=== PATIENT | male | born 1955 | race Caucasian/White ===

== ENCOUNTER 2023-02-19 09:28 | Day surgery (SDC) | payer MEDICARE, OTHER ==
[2023-02-19] VITALS (11 sets, daily range): BP systolic 133–176; BP diastolic 66–91; PULSE 60–85
[~2023-02-19] VITALS: Ht 172.7 cm; Wt 84.5 kg
[~2023-02-19 09:28] MED LIST: AMIO200T68 PO; ASPIRIN 81 MG CHEWABLE TABLET PO ONE; DIAZEPAM 5 MG TABLET PO ONE; DiphenhydrAMINE HCL 50 MG CAPSULE PO ONE; LEVO200 PO; METO25 PO; RIVA2.5T3 PO; SILD20TA PO; SODIUM CHLORIDE 0.9% 1,000 ML IV ONE; SODIUM CHLORIDE 0.9% 1,000 ML IV SCH; SODIUM CHLORIDE 0.9% 1,000 ML ONE; TAMS0.4C94 PO; ZOLP-162 PO
[2023-02-19] MEDS ORDERED: DIAZEPAM 5 MG TABLET ONE (09:48)
[2023-02-19] MEDS ORDERED: ASPIRIN 81 MG CHEWABLE TABLET ONE (09:48)
[2023-02-19] MEDS ORDERED: DiphenhydrAMINE HCL 50 MG CAPSULE ONE (09:48)
[2023-02-19 11:12] LABS: GLUCOMETER DEV NAME(LOC) SDS.; GLUCOSE,POINT OF CARE 134 MG/DL (70-110)
[2023-02-19] MEDS ORDERED: LIDOCAINE/PF 1% 30 ML VIAL ONE (11:26)
[2023-02-19] MEDS ORDERED: HEPARIN SODIUM 1000 UNITS/NS 1,000 ML ONE (11:26)
[2023-02-19] MEDS ORDERED: IOHEXOL 300 MG/ML 100 ML VIAL ONE (11:26)
[2023-02-19] MEDS ORDERED: SODIUM BICARBONATE 50 MEQ/50 ML VIAL ONE (11:26)
[2023-02-19] MEDS ORDERED: LIDOCAINE 1% 30 ML/SOD BICARB 8.4% 4 ML SQ ONE (11:30)
[2023-02-19] MEDS ORDERED: HEPARIN SODIUM 1000 UNITS/NS 1,000 ML IARTER ONE (11:30)
[2023-02-19] MEDS ORDERED: IOHEXOL 300 MG/ML 100 ML VIAL IARTER ONE (11:30)
[2023-02-19] MEDS ORDERED: EMPA25TA3 PO (11:38)
[2023-02-19] MEDS ORDERED: LEVO175T9 PO (11:38)
[2023-02-19] MEDS ORDERED: ATOR-2 PO (11:38)
[2023-02-19] MEDS ORDERED: EZET10TA57 PO (11:38)
[2023-02-19] MEDS ORDERED: DICL100G32 TP (11:38)
[2023-02-19] MEDS ORDERED: FentaNYL CITRATE PF 100 MCG/2 ML VIAL ONE ×2 (11:58→12:39)
[2023-02-19] MEDS ORDERED: MIDAZOLAM HCL 2 MG/2 ML VIAL ONE ×2 (11:59→12:39)
[2023-02-19] MEDS ORDERED: NITROGLYCERIN 50 MG/D5% WATER 250 ML ONE (12:23)
[2023-02-19] MEDS ORDERED: VERAPAMIL HCL 2.5 MG/ML 2 ML VIAL ONE (12:30)
[2023-02-19] MEDS ORDERED: HEPARIN SODIUM,PORCINE 1,000 UNITS/ML 10 ML VIAL IARTER ONE (13:00)
[2023-02-19] MEDS ORDERED: MIDAZOLAM HCL 2 MG/2 ML VIAL IVP ONE ×2 (13:00)
[2023-02-19] MEDS ORDERED: VERAPAMIL HCL 2.5 MG/ML 2 ML VIAL IARTER ONE (13:00)
[2023-02-19] MEDS ORDERED: FentaNYL CITRATE PF 100 MCG/2 ML VIAL IVP ONE ×2 (13:00)
[2023-02-19] MEDS ORDERED: NITROGLYCERIN/D5W 50 MG/250 ML IV BOTTLE IARTER ONE (13:00)
[2023-02-19] MEDS ORDERED: ACETAMINOPHEN 325 MG TABLET PO ONE (15:30)
[2023-02-19] MEDS ORDERED: HydrALAZINE HCL 20 MG/ML VIAL ONE (15:32)
[2023-02-19] MEDS ORDERED: HydrALAZINE HCL 20 MG/ML VIAL IVP ONE (15:45)
== END 2023-02-19 18:35 | disposition home or self-care (01) ==
LOC: CATHLAB 09:28
PROVIDERS: ATTEND Internal Medicine Interventional Cardiology
DX: R94.39 Abnormal result of other cardiovascular function study (principal); I25.10 Atherosclerotic heart disease of native coronary artery without angina pectoris; I25.82 Chronic total occlusion of coronary artery; I25.2 Old myocardial infarction; E11.9 Type 2 diabetes mellitus without complications; G47.30 Sleep apnea, unspecified; I10 Essential (primary) hypertension; E78.5 Hyperlipidemia, unspecified; E66.9 Obesity, unspecified; Z79.899 Other long term (current) drug therapy; Z98.890 Other specified postprocedural states; Z79.4 Long term (current) use of insulin
CPT/HCPCS: 93455; 93005; 82962; 99152; 99153; J3010; J1644; J0360; J3490 ×4; J2250; J7030; Q9967; 93459